=== PATIENT | male | born 1995 | race Asian ===

== ENCOUNTER 2016-11-10 10:56 | Emergency (ER) | payer OTHER ==
[2016-11-10 11:18] VITALS: TEMP 97
[2016-11-10 12:32] LABS: COLOR YELLOW; LEUKOCYTE ESTERASE,URINE NEGATIVE (NEGATIVE); NITRITE,URINE NEGATIVE (NEGATIVE)
[2016-11-10 12:36] LABS: MUCUS 1+ /lpf (NONE-1+)
[2016-11-10] MEDS ORDERED: AZITHROMYCIN 250 MG TAB PO ONE (13:43)
--- NOTE | 2016-11-10 13:47 | EDPHY ---
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 Exam Limitations: Language barrier (Used tele hammer heater) - Personal History Current Tetanus/Diphtheria Vaccine: Yes - Medical/Surgical History Hx Asthma: No Hx Chronic Respiratory Disease: No Hx Diabetes: No Hx Cardiac Disease: No Hx Renal Disease: No Hx Cirrhosis: No Hx Alcoholism: No Hx HIV/AIDS: No Hx Splenectomy or Spleen Trauma: No Other PMH: denies - Social History Smoking Status: Current every day smoker Time Seen by Provider: 11/10/16 11:13 HPI/ROS: CHIEF COMPLAINT: Hematuria HISTORY OF PRESENT ILLNESS: 21-year-old male presents emergency department complaining of a 3 day history of hematuria and dysuria. Patient reports burning with intercourse. He denies penile discharge. Patient denies fevers or chills, no abdominal pain, no back pain, no nausea or vomiting. He reports no history of STD. He denies urinary frequency or urgency. REVIEW OF SYSTEMS: A comprehensive 10 point review of systems is otherwise negative aside from elements mentioned in the history of present illness. (Alka Lopez) - Physical Exam Exam: Physical Exam- Gen: Alert and Oriented, NAD HEENT: PERRL, moist mucous membranes NECK: no meningismus CV: regular rate and regular rhythm PULM: CTAB, no wheezes ABDOMEN: soft, non tender to palpation, BS present : Refuses penile exam BACK: No CVA tenderness NEURO: Neurologically grossly intact EXTREMITIES: normal appearing SKIN: no rash or break in skin on exposed skin PSYCH: answers questions appropriately. (Alka Lopez) Constitutional: Initial Vital Signs Temperature (C) 36.1 C 11/10/16 10:56 Heart Rate 78 11/10/16 10:56 Respiratory Rate 16 11/10/16 10:56 Blood Pressure 115/75 11/10/16 10:56 O2 Sat (%) 96 11/10/16 10:56 O2 Delivery Mode Room Air Allergies/Adverse Reactions: No Known Allergies Allergy (Verified 04/25/16 21:35) Home Medications: Medication Instructions Recorded NK [No Known Home Meds] 04/25/16 Medical Decision Making ED Course/Re-evaluation: Urine culture has been added. Patient is treated for gonorrhea and chlamydia. Gonorrhea and chlamydia tests have been ordered. Patient is educated about STDs. His girlfriend should be tested and treated prior to intercourse. (Alka Lopez) Differential Diagnosis: Diagnosis considered but not limited to STD, urinary tract infection, cystitis, kidney stone. (Alka Lopez) - Data Points Laboratory Results: 11/10/16 11/10/16 11:55 11:55 Urine Color YELLOW Urine Appearance CLEAR Urine pH 6.0 (5.0-7.5) Ur Specific [place] 1.011 (1.002-1.030) Urine Protein NEGATIVE (NEGATIVE) Urine Ketones 1+ H (NEGATIVE) Urine Blood 2+ H (NEGATIVE) Urine Nitrate NEGATIVE (NEGATIVE) Urine Bilirubin NEGATIVE (NEGATIVE) Urine Urobilinogen NEGATIVE EU EU (0.2-1.0) Ur Leukocyte Esterase NEGATIVE (NEGATIVE) Urine RBC 3-5 /hpf H /hpf (0-3) Urine WBC 5-10 /hpf H /hpf (0-3) Ur Epithelial Cells TRACE /lpf /lpf (NONE-1+) Urine Mucus 1+ /lpf /lpf (NONE-1+) Urine Glucose NEGATIVE (NEGATIVE) C.trachomatis RNA (TMA) Pending N.gonorrhoeae RNA (TMA) Pending Medications Given: Discontinued Medications Azithromycin (Zithromax) 1,000 mg PO EDNOW ONE PRN Reason: Protocol Stop: 11/10/16 13:44 Last Admin: 11/10/16 13:50 Dose: 1,000 mg Departure - Departure Disposition: Home, Routine, Self-Care Clinical Impression: Hematuria, Dysuria Condition: Good Instructions: Chlamydia (ED), Sexually Transmitted Diseases (ED), Gonorrhea (ED ) Additional Instructions: You have been treated for chlamydia and gonorrhea today. Your test results will be back in 48 hours, you can call [phone] for the results. Your girlfriend should also be tested. Do not have sex for 7 days after treatment. Return to the emergency department for any worsening symptoms. Follow up with the primary care doctor listed for any new symptoms, continuing symptoms or concerns. Referrals: Krish Johnson MD [Medical Doctor] - As per Instructions (Primary care doctor on-call) Print Language: Indonesian [employer]ular Patterns[employer]
[2016-11-10] MEDS ORDERED: CEFTRIAXONE IM 350 MG/ML SYRINGE IM ONE (14:08)
[2016-11-10 15:05] VITALS: BP 107/62; PULSE 74; RESP 18; O2SAT 97
[2016-11-12 13:06] LABS: CHLAMYDIA AMPLIFICATION GENPRB POSITIVE (NEGATIVE)
== END 2016-11-10 15:05 | disposition home or self-care (01) ==
DX: R31.9 Hematuria, unspecified (principal); R30.0 Dysuria; F17.200 Nicotine dependence, unspecified, uncomplicated; B96.89 Other specified bacterial agents as the cause of diseases classified elsewhere
CPT/HCPCS: J0696